=== PATIENT | female | born 1960 | race Caucasian/White ===

== ENCOUNTER 2020-04-30 14:28 | Outpatient (CLI) | payer BC, SELFPAY ==
[2020-04-30 15:22] LABS: SARS-CoV-2 Ag Negative (Negative)
== END 2020-04-30 14:29 | disposition home or self-care (01) ==
LOC: CHSLAB 14:33
PROVIDERS: PCP Family Medicine; Visit Provider Nurse Practitioner
DX: Z20.828 Contact with and (suspected) exposure to other viral communicable diseases (principal)
CPT/HCPCS: 87426